=== PATIENT | female | born 1995 | race African-American/Black ===

== ENCOUNTER 2019-01-02 01:00 | Emergency (ER) | payer OTHER ==
[~2019-01-02] VITALS: Ht 152.4 cm; Wt 49.9 kg
[2019-01-02 02:38] VITALS: BP 95/65; TEMP 97.7
== END 2019-01-02 02:39 | disposition home or self-care (01) ==
LOC: ED 01:00
DX: J02.9 Acute pharyngitis, unspecified (principal); K08.89 Other specified disorders of teeth and supporting structures
CPT/HCPCS: 87651; 99283